=== PATIENT | male | born 1975 | race Caucasian/White ===

== ENCOUNTER 2020-11-10 00:48 | Emergency (ER) | payer OTHER ==
[~2020-11-10] VITALS: Ht 185.4 cm; Wt 97.5 kg
[~2020-11-10 00:48] MED LIST: NOHOMEMEDICATIONS; TRAMADOL 50 MG50 MG PO
[2020-11-10] MEDS ORDERED: FLEXERIL PO (02:18)
[2020-11-10] MEDS ORDERED: IBUPROFEN 800800 MG PO (02:18)
[2020-11-10 02:49] VITALS: BP 144/79
== END 2020-11-10 02:49 | disposition home or self-care (01) ==
LOC: M.ERS 00:48
DX: M62.838 Other muscle spasm (principal); V89.2XXA Person injured in unspecified motor-vehicle accident, traffic, initial encounter; Y93.89 Activity, other specified; Y92.89 Other specified places as the place of occurrence of the external cause; Y99.8 Other external cause status